=== PATIENT | male | born 1985 | race Caucasian/White ===

== ENCOUNTER 2024-08-18 14:48 | Emergency (ER) | payer SELFPAY ==
[~2024-08-18] VITALS: Ht 172.7 cm; Wt 113.6 kg
[2024-08-18 14:49] VITALS: BP 148/101; PULSE 102; RESP 18; TEMP 97.9; O2SAT 97
[2024-08-18] MEDS: thiamine 100mg tablet PO ONE (16:52)
[2024-08-18] MEDS: folic acid 1mg tablet PO ONE (16:52)
== END 2024-08-18 18:20 | disposition home or self-care (01) ==
LOC: ER 14:49
DX: F10.129 Alcohol abuse with intoxication, unspecified (principal); R41.0 Disorientation, unspecified; S00.81XA Abrasion of other part of head, initial encounter; X58.XXXA Exposure to other specified factors, initial encounter; Y93.89 Activity, other specified; Y92.89 Other specified places as the place of occurrence of the external cause; Y99.8 Other external cause status; Y90.9 Presence of alcohol in blood, level not specified
CPT/HCPCS: 70450; 70486; 70490; 82948; 99284